=== PATIENT | male | born 1950 | race Caucasian/White ===

== ENCOUNTER 2021-06-03 01:18 | Day surgery (SDC) | payer MEDICARE, OTHER, SELFPAY ==
[2021-05-21 15:49] VITALS: BMI 32.8
[2021-06-03 06:21] VITALS: BMI 31.5
[2021-06-03 06:39] LABS: Glucose Point of Care 142 mg/dl (65-105)
--- NOTE | 2021-06-03 06:48 | WPDANESEPPF ---
Anes - Initial Pre Proc Eval Procedure: Operation Date: 06/03/21 09:30 Proposed Procedures p Colonoscopy - Deion Villatoro MD Date/Time: 06/03/21 06:48 Surgeon: Deion Villatoro MD Pre Op Diagnosis: occult GI bleed Patient Data Age: 71 Gender: M Height: 1.73 m Weight: 94 kg Allergies Allergy/AdvReac Type Severity Reaction Status Date / Time No Known Allergies Allergy Mild Unverified 06/03/21 06:20 Home Medications Medication Instructions Recorded Confirmed Type alprazolam 0.25 mg tablet 0.25 mg PO QAM 11/05/19 05/21/21 History amlodipine 10 mg tablet 10 mg PO DAILY 11/05/19 05/21/21 History aspirin 81 mg tablet,delayed 81 mg PO DAILY 11/05/19 05/21/21 History release bupropion HCl 150 mg 24 hr tablet, 150 mg PO BID tablet 11/05/19 05/21/21 History extended release fenofibrate 160 mg tablet 160 mg PO DAILY 11/05/19 05/21/21 History lancets 33 gauge #100 each 11/05/19 02/06/20 History metoprolol succinate 50 mg 50 mg PO BID 11/05/19 05/21/21 History tablet,extended release 24 hr pantoprazole 40 mg tablet,delayed 40 mg PO ONCE tablet 11/05/19 05/21/21 History release pen needle, diabetic 31 gauge x #30 each 11/05/19 02/06/20 History 03/14 cholecalciferol (vitamin D3) 1,000 unit PO DAILY 11/13/19 05/21/21 History [Vitamin D3] cyanocobalamin (vitamin B-12) 2,000 mcg PO DAILY 11/13/19 05/21/21 History [Vitamin B-12] blood sugar diagnostic #300 each 03/13/20 Rx hydralazine 25 mg tablet 100 mg PO BID tablet 06/01/20 05/21/21 History famotidine 20 mg tablet 10 mg PO DAILY 02/02/21 05/21/21 History lisinopril 40 mg tablet 40 mg PO DAILY #90 tablet 04/19/21 05/21/21 Rx atorvastatin 40 mg PO DAILY 05/21/21 05/21/21 History metformin 1,000 mg PO BID 05/21/21 05/21/21 History semaglutide [Ozempic] 1 mg SUBCUT WEEKLY 05/21/21 05/21/21 History Laboratory Tests 06/03/21 06:35 POC Capillary Glucose 142 mg/dl H mg/dl (65-105) Patient hx anesthesia problems: none Family hx anesthesia problems: none [facility] Past Medical History Medical History (Updated 10/01/20 @ 12:33 by Orquidea West MD) Diabetes GERD (gastroesophageal reflux disease) SILVIO (obstructive sleep apnea) Family History Family History Mother Depression Hypertension Father Carcinoma of colon Sibling Diabetes mellitus Other Family history of hearing loss Social History Social History Smoking packs per day: 2 Smoking cigarettes per day: 40.0 Years smoked: 25 Smoking pack-years: 50.00 Smoking status: Current some day smoker Tobacco type: cigarettes Second hand tobacco smoke exposure: Yes Smoking end date: 10/30/10 Additional smoking assessment comments: SMOKES >5 CIG/DAY NOW Alcohol intake: current Substance use: never Substance use type: does not use Living arrangements: with family Spiritual care concerns: No Anes - Eval Final PreProcedure Day of Procedure 06/03/21 06:48 Patient weight: obese Heart: regular rate and rhythm Lungs: clear to auscultation Airway: Mallampati scale class II Neurological: alert and oriented Last oral intake: >/= 8 hours ASA classification: III Emergent: no Anesthetic plan: proceed Anesthesia type and monitoring: general GIVS and standard monitoring Informed Consent: The patient's anesthetic plan and its attendant risks and benefits were discussed with the patient/family/POA. Questions were solicited and answers provided to the satisfaction of the patient/family/POA.
[2021-06-03] MEDS: LACTATED RINGERS 1,000 ML 150 ML IV CONT (07:00)
[2021-06-03 07:10] VITALS: BP 156/61; PULSE 83; RESP 18; O2SAT 98
--- NOTE | 2021-06-03 07:22 | WPDGICN ---
Assessment and Plan Assessment and plan (1) Occult blood in stools: Code(s): R19.5 - Other fecal abnormalities Status: Acute Assessment and Plan: Patient found to have occult blood in stool primary care office. Referred for colonoscopy which will be performed today. Differential diagnosis is broad but patient has had colon polyps before. He also has known to have hemorrhoids by previous endoscopy. Further recommendations will be given after endoscopy. (2) Anemia: Code(s): D64.9 - Anemia, unspecified Status: Acute Assessment and Plan: Patient reports that he was anemic however these labs not available for me to review. Repeat CBC will be performed today. (3) History of colon polyps: Code(s): Z86.010 - Personal history of colonic polyps Status: Acute Assessment and Plan: Patient had colon polyps identified by endoscopy 1 year ago. Follow-up colonoscopy will be performed today and should be considered at intervals in the future. (4) Family history of colon cancer in father: Code(s): Z80.0 - Family history of malignant neoplasm of digestive organs Status: Acute Assessment and Plan: because of family history of colon cancer in his father follow-up colonoscopy at 5 year intervals has been suggested. GI Consult Note Consult date/time: 06/03/21 07:22 HPI: Anders Moreno is a 71 year old male Who presents for follow-up colonoscopy. Patient apparently had anemia on routine screening labs period was found to have occult blood in stool is referred for colonoscopy. Patient previously had colonoscopy 1 year ago that revealed colon polyps. His family history is significant that his father had colon cancer. At the time of colonoscopy hemorrhoids were identified. Patient reports he has no significant blood in his stools as weight appetite bowel movements are normal. He denies abdominal pain he has been feeling well. Colonoscopy has been requested because of occult blood loss in stool. Review of Systems Review of Systems: All systems reviewed & are unremarkable except as noted in HPI and below PMFSH Past Medical History Medical History (Updated 06/03/21 @ 07:25 by Deion Villatoro MD) Diabetes GERD (gastroesophageal reflux disease) SILVIO (obstructive sleep apnea) Family History Family History Mother Depression Hypertension Father Carcinoma of colon Sibling Diabetes mellitus Other Family history of hearing loss Social History Social History Smoking packs per day: 2 Smoking cigarettes per day: 40.0 Years smoked: 25 Smoking pack-years: 50.00 Smoking status: Current some day smoker Tobacco type: cigarettes Second hand tobacco smoke exposure: Yes Smoking end date: 10/30/10 Additional smoking assessment comments: SMOKES >5 CIG/DAY NOW Alcohol intake: current Substance use: never Substance use type: does not use Living arrangements: with family Spiritual care concerns: No Meds Home Medications and Allergies Home Medications Medication Instructions Recorded Confirmed Type alprazolam 0.25 mg tablet 0.25 mg PO QAM 11/05/19 05/21/21 History amlodipine 10 mg tablet 10 mg PO DAILY 11/05/19 05/21/21 History aspirin 81 mg tablet,delayed 81 mg PO DAILY 11/05/19 05/21/21 History release bupropion HCl 150 mg 24 hr tablet, 150 mg PO BID tablet 11/05/19 05/21/21 History extended release fenofibrate 160 mg tablet 160 mg PO DAILY 11/05/19 05/21/21 History lancets 33 gauge #100 each 11/05/19 02/06/20 History metoprolol succinate 50 mg 50 mg PO BID 11/05/19 05/21/21 History tablet,extended release 24 hr pantoprazole 40 mg tablet,delayed 40 mg PO ONCE tablet 11/05/19 05/21/21 History release pen needle, diabetic 31 gauge x #30 each 11/05/19 02/06/20 History 03/14 cholecalciferol (vitamin D3)
[2021-06-03 07:48] VITALS: BP 108/56; PULSE 72; RESP 25; O2SAT 95
[2021-06-03 07:58] VITALS: BP 110/57; PULSE 76; RESP 18; O2SAT 95
[2021-06-03 08:08] VITALS: BP 126/62; PULSE 74; RESP 20; O2SAT 95
[2021-06-03 08:28] LABS: Hematocrit 36.5 % (42.0-52.0); Hemoglobin 11.5 g/dL (14.0-18.0); Mean Corpuscular HGB Conc 31.5 g/dl (32-36); Mean Corpuscular Hemoglobin 29.3 pg (26-34); Mean Corpuscular Volume 93.1 fl (80-100); Mean Platelet Volume 9.9 fl (7.4-10.4); Platelet Count Result 348 k/mm3 (150-375); Red Blood Count 3.92 M/mm3 (4.6-6.20); Red Cell Distribution Width 14.3 % (11.5-14.5); White Blood Count 6.6 K/mm3 (4.5-10.0)
--- NOTE | 2021-06-03 08:44 | SUR.PHASEII ---
CBC DRAWN PRIOR TO DISCHARGE.
== END 2021-06-03 08:35 | disposition home or self-care (01) ==
PROVIDERS: PCP Internal Medicine; Visit Provider Internal Medicine Gastroenterology
PROC: 0DJD8ZZ Inspection of Lower Intestinal Tract, Via Natural or Artificial Opening Endoscopic (ICD-10-PCS; CPT 45378; principal; 2021-06-03 07:30)
DX: R19.5 Other fecal abnormalities (principal); D64.9 Anemia, unspecified; K62.1 Rectal polyp; K64.8 Other hemorrhoids; K57.30 Diverticulosis of large intestine without perforation or abscess without bleeding; Z80.0 Family history of malignant neoplasm of digestive organs; E11.9 Type 2 diabetes mellitus without complications; K21.9 Gastro-esophageal reflux disease without esophagitis; G47.33 Obstructive sleep apnea (adult) (pediatric); Z79.82 Long term (current) use of aspirin; Z79.84 Long term (current) use of oral hypoglycemic drugs; F17.210 Nicotine dependence, cigarettes, uncomplicated; E66.9 Obesity, unspecified; Z68.31 Body mass index [BMI] 31.0-31.9, adult
CPT/HCPCS: 45385; 36415; 82948; 85027; 88305; J2704; J7120

== ENCOUNTER 2022-09-05 10:04 | Outpatient (CLI) | payer MEDICARE, SELFPAY ==
[2022-09-05 12:48] LABS: Anion Gap 14 mmol/L (8-16); Blood Urea Nitrogen 33 mg/dL (9-20); Calcium 9.7 mg/dL (8.4-10.2); Carbon Dioxide 22 mmol/L (22-30); Chloride 101 mmol/L (98-107); Estimated Glomerular Filt Rate 37; Glucose 149 mg/dL (65-110); Potassium 4.5 mmol/L (3.4-5.0); Sodium 137 mmol/L (137-145)
[2022-09-05 13:29] LABS: Creatinine Urine 68.2 mg/dL
[2022-09-05 13:46] LABS: MALB Creatinine Ratio 370.2 mg/g (0-30); Microalbumin Urine Random 252.5 mg/L (0-16.7)
== END 2022-09-05 10:05 | disposition home or self-care (01) ==
LOC: ANHWCLAB 10:08
PROVIDERS: PCP Family Medicine; Visit Provider Internal Medicine Endocrinology, Diabetes & Metabolism
DX: E11.65 Type 2 diabetes mellitus with hyperglycemia (principal); E11.29 Type 2 diabetes mellitus with other diabetic kidney complication; R80.9 Proteinuria, unspecified
CPT/HCPCS: 36415; 80048; 82043

== ENCOUNTER 2025-01-30 08:45 | Outpatient (RCR) | payer MEDICARE, SELFPAY ==
--- NOTE | 2025-01-09 17:09 | PTOPEVAL1 ---
Assessment and note entered by Manda Newell, PT Evaluation Information Assessment Status Evaluation Diagnosis dizziness ICD-10 Condition Codes (PT) Cervicalgia M54.2,Difficulty Walking R26.2, Dizziness and Giddiness R42 Subjective Information Moving his head quickly L<>R, and up and down makes him dizzy. Reports this began wiht loss of eye sight, but in the last 6 months got worse. Has hearing aids, and when was getting ears cleaned got extremely dizzy and nauseas. Reports always reaching out for items with standing and walking. Has considered a vision cane but that wouldn't work in his shop or house. Always tries to have someone walk in front in new areas. Doesn't drive. Has had a previous vertigo episode that was previously treated. This round is not near as bad. Notes sit>stand needs a few seconds Sudden movements increases symptoms Reported Pain Level Pain Score 0: Self Report Assessment PT Clinical Summary Pt presents with c/o dizziness at times with movement especially with quick motions L<>R. Pt reports dizziness symptoms with Yoly-Hallpike bandar L >R without nystagmus. Pt also has reported severe visual deficits bandar that have an effect on his balance and possibly dizziness symptoms. Pt also has a very stiff neck with loss of ROM and pain which can effect dizziness symptoms. Pt will benefit from therapy to address balance deficits with standing static and dynamic proprioceptive exercises, monitor vertigo symptoms, and improve cervical spine deficits in order to improve overall dizziness symptoms. Plan of Care Interventions Electrical Stimulation,Hot Pack/Cold Pack,Manual Therapy,Mechanical Traction,Neuro Re-education, Patient/Caregiver Education,Therapeutic Activities ,Therapeutic Exercise,Self-Care/Home Management, Other PT Services Indicated Yes Treatment Frequency and 1-2x weekly x 10 visits Duration These treatments will address the objective and functional deficits as defined above. The patient will be advanced safely and appropriately in order for the patient to progress towards his/her prior level of function. Additional exercises will be introduced and as well as a comprehensive home exercise program upon discharge, if needed, ?to ensure carryover of functional gains achieved in the clinic. This treatment plan has been reviewed and agreement upon by the patient.
--- NOTE | 2025-01-09 17:09 | OPREHPOC ---
Outpatient Therapy Plan of Care This is a Multidisciplinary Plan of Care that may contain components documented by all disciplines (PT, OT, and ST.) PT Goal 1 Goal / Goal Update Pt will be independent in HEP Pt will verbalize understanding of diagnosis and prognosis Target Visit 5 PT Problem 2 PT Problem #2 Impaired Range of Motion PT Goal 1 Goal / Goal Update Pt will demonstrate cervical extension ROM of 20 degrees or greater Target Visit 10 PT Problem 3 PT Problem #3 Impaired Balance PT Goal 1 Goal / Goal Update Pt will report improvement in his dizziness symptoms with head motion Target Visit 5 PT Goal 2 Goal / Goal Update Pt will demonstrate 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
--- NOTE | 2025-01-30 09:20 | PTOPDC ---
Assessment and note entered by Manda Newell, PT Evaluation Information Assessment Status Discharge Diagnosis dizziness ICD-10 Condition Codes (PT) Cervicalgia M54.2,Difficulty Walking R26.2, Dizziness and Giddiness R42 Subjective Information dizziness is resolved. Overall balance is fine, but has improved since starting PT. Feels that he is reaching out for items less than previously Has been applying counting to 10 when changing positions Pt feels more confident in walking. Reported Pain Level Pain Score 0: Self Report Assessment PT Clinical Summary Pt has attended therapy consistently for six visits. His dizziness is resolved, he has met all therapy goals including increased cervical ROM and increased balance eyes open and closed. He reports feeling more confident in his walking and states he is applying the count to 10 modification to supine>stand transitions. Thus patient is being discharged for completion of therapy plan of care. Plan of Care PT Services Indicated No
== END 2025-01-30 09:25 | disposition home or self-care (01) ==
LOC: ANHHIPT 08:45
PROVIDERS: PCP Physician Assistant Medical; Visit Provider Physician Assistant Medical
DX: R42 Dizziness and giddiness (principal)
CPT/HCPCS: 97112; 97162; 97750